=== PATIENT | male | born 1975 | race Two or more races ===

== ENCOUNTER 2024-07-01 23:59 | Emergency (ER) | payer OTHER ==
[~2024-07-01] VITALS: Ht 172.7 cm; Wt 77.1 kg
[2024-07-02] MEDS ORDERED: ZESTRIL5 MG PO (00:11)
[2024-07-02] MEDS ORDERED: ACID REDUCER20 M1 PO (00:11)
[2024-07-02] MEDS ORDERED: HUMULIN R100 UNIT/1 SUBCUTANEO (00:11)
[2024-07-02] MEDS ORDERED: VASOTEC5 MG PO (00:12)
[2024-07-02] MEDS ORDERED: 0.9 % SODIUM CHLORIDE 1,000 ML IV STA (01:06)
[2024-07-02] MEDS ORDERED: MORPHINE SULFATE 4 MG/ML VIAL IV STA (01:06)
[2024-07-02] MEDS ORDERED: INSULIN REGULAR, HUMAN 1,000 UNIT/10 ML UNITS SUBCUTANEO STA (01:44)
[2024-07-02 02:15] LABS: CALCIUM 9.2 mg/dL (8.5-10.1); CREATININE SERUM 1.08 mg/dL (0.70-1.30); GFR 72.08; POTASSIUM 3.67 mEq/L (3.5-5.1)
[2024-07-02 03:29] LABS: URINE APPEARANCE Clear; URINE BILIRRUBIN Negative (NEGATIVE); URINE BLOOD Negative; URINE COLOR Yellow; URINE LEUKOCYTE Negative; URINE NITRATE Negative; URINE PROTEIN Negative (NEGATIVE); URINE UROBILINOGEN 0.2 E.U./dl
[2024-07-02 03:39] LABS: URINE BACTERIA 1.2 uL (0.0-1933); URINE EPITHELIAL CELLS 0.1 uL (0.0-38.8); URINE GLUCOSE >=1000 MG/DL (NEGATIVE); URINE KETONE 40 (NEGATIVE); URINE RBC 1.3 uL (0.0-20.8); URINE WBC 0.7 uL (0.0-23.2)
== END 2024-07-02 05:00 | disposition home or self-care (01) ==
LOC: ER 23:59
DX: R10.9 Unspecified abdominal pain (principal); I10 Essential (primary) hypertension; K59.00 Constipation, unspecified; E11.65 Type 2 diabetes mellitus with hyperglycemia; Z79.4 Long term (current) use of insulin; Z88.8 Allergy status to other drugs, medicaments and biological substances